=== PATIENT | male | born 1960 | race Two or more races ===

== ENCOUNTER 2019-04-06 07:20 | Outpatient (CLI) | payer OTHER | END 2019-04-06 07:25 | disposition home or self-care (01) | LOC: SONOGRAMA 07:20 | DX: E04.2 Nontoxic multinodular goiter (principal) ==

== ENCOUNTER 2025-04-23 09:12 | Outpatient (CLI) | payer OTHER | END 2025-04-23 09:19 | disposition home or self-care (01) | LOC: SONOGRAMA 09:12 | PROVIDERS: ATTEND Pathology Anatomic Pathology | DX: D34 Benign neoplasm of thyroid gland (principal); E07.89 Other specified disorders of thyroid; C73 Malignant neoplasm of thyroid gland ==